=== PATIENT | female | born 1990 | race Asian ===

== ENCOUNTER → 2025-03-30 | Outpatient (CLI) | payer BC, SELFPAY ==
[2025-03-30 08:12] LABS: Misc Send Out* See Sep Rpt
[2025-03-30 08:54] LABS: Basophils # (Auto) 0.0 Thou/mm3 (0.0-0.2); Basophils % (Auto) 1 % (0-2.5); Eosinophils # (Auto) 0.3 Thou/mm3 (0.0-0.5); Eosinophils % (Auto) 4 % (0-10); Hematocrit 41.1 % (36.0-46.0); Hemoglobin 14.4 g/dL (12.0-16.0); Immature Granulocytes Auto 0.01 Thou/mm3 (0.00-0.00); Lymphocytes # (Auto) 2.6 Thou/mm3 (1.0-4.8); Lymphocytes % (Auto) 38 % (10-50); Mean Corpuscular HGB Conc 35.0 g/dl (31.0-37.0); Mean Corpuscular Hemoglobin 30.6 pg (25.0-35.0); Mean Corpuscular Volume 87 fL (80-100); Monocytes # (Auto) 0.4 Thou/mm3 (0.0-0.8); Monocytes % (Auto) 6 % (0-12); Neutrophils # (Auto) 3.4 Thou/mm3 (1.8-7.7); Neutrophils % (Auto) 50 % (37-80); Nucleated Red Blood Cell # 0.00 Thou/mm3 (0.00-0.00); Nucleated Red Blood Cell % 0 /100 WBC (0); Platelet Count 300 Thou/mm3 (140-440); RDW Standard Deviation 38.9 fL (36.4-46.3); Red Blood Count 4.71 Miln/mm3 (4.00-5.20); White Blood Count 6.7 Thou/mm3 (3.6-11.0)
[2025-03-30 09:13] LABS: Alanine Aminotransferase 105 U/L (10-49); Albumin, Serum 4.7 gm/dL (3.5-5.0); Albumin/Globulin Ratio 1.7 (1.2-2.2); Alkaline Phosphatase 151 U/L (46-116); Anion Gap 10 (7-16); Aspartate Amino Transferase 57 U/L (0-34); BUN/Creatinine Ratio 15 Ratio (12-20); Beta HCG,Quantitative < 1 mIU/mL (<5.0); Bilirubin,Total 0.7 mg/dL (0.3-1.2); Blood Urea Nitrogen 12 mg/dL (9-23); Calcium 9.2 mg/dL (8.3-10.6); Calcium (Corrected) 9.2 mg/dL (8.5-10.1); Carbon Dioxide 25.4 mMol/L (20.0-31.0); Chloride 106 mMol/L (98-107); Creatinine (Component) 0.8 mg/dL (0.6-1.3); Follicle Stimulating Hormone 2.79 mIU/mL (See Note); Free T4 (Free Thyroxine) 1.25 ng/dL (0.89-1.76); Globulin 2.7 gm/dL (2.3-3.5); Glucose 89 mg/dL (74-106); Glucose Estimated Average 91 mg/dL (80-131); Hemoglobin A1C 4.8 % Hgb (4.8-6.0); Osmolality,Calculated 279 (275-295); Potassium 3.9 mMol/L (3.4-5.1); Sodium 141 mMol/L (136-145); Thyroid Stimulating Hormone 2.07 uIU/mL (0.55-4.78); Total Protein 7.4 gm/dL (5.7-8.2); eGFR > 60 See Note
[2025-04-05 07:13] LABS: PTT-LA Screen 37 seconds (< OR = 40); dRVVT Screen 36 seconds (< OR = 45)
[2025-04-06 13:51] LABS: Cardiolipin Ab (IgA) <2.0 APL-U/mL; Cardiolipin Ab (IgG) <2.0 GPL-U/mL
[2025-04-07 06:38] LABS: B2-Glycoprotein I Ab IgA <2.0 U/mL; B2-Glycoprotein I Ab IgG <2.0 U/mL; B2-Glycoprotein I Ab IgM <2.0 U/mL; Cardiolipin Ab (IgM) 2.2 MPL-U/mL; DHEA Sulfate* 283 mcg/dL (23-266); Estrogen, Total, Serum* 201 pg/mL; Luteinizing Hormone* 4.6 mIU/mL; Progesterone,LC/MS* 10.6 ng/mL; Prolactin* 11.1 ng/mL; Testosterone, Free,Dialysis 3.8 pg/mL (0.1-6.4); Testosterone, Total, Dialysis 18 ng/dL (2-45)
== END | disposition home or self-care (01) ==
LOC: COPL 07:43
PROVIDERS: PCP Family Medicine; Referring Provider Specialist; Visit Provider Specialist
DX: N93.9 Abnormal uterine and vaginal bleeding, unspecified (principal); N96 Recurrent pregnancy loss
CPT/HCPCS: 36415; 80053; 82627; 82672; 83001; 83002; 83036; 84144; 84146; 84402; 84403; 84439; 84443; 84702; 85025; 85613; 85730; 86146; 86147; 88230; 88263